=== PATIENT | female | born 1990 | race Two or more races ===

== ENCOUNTER 2018-01-09 14:22 | Emergency (ER) | payer MEDICAID ==
[~2018-01-09] VITALS: Ht 162.6 cm; Wt 108.4 kg
[2018-01-09 14:34] VITALS: BP 133/43
[2018-01-09] MEDS ORDERED: ONDANSETRON ODT 4 MG TAB PO ONE (16:30)
[2018-01-09] MEDS ORDERED: HYDROcodone-ACET 10/325MG TAB PO ONE (16:30)
== END 2018-01-09 17:21 | disposition home or self-care (01) ==
LOC: ER 14:22
DX: R04.0 Epistaxis (principal); R51 Headache
CPT/HCPCS: 70450; 99284; Q0162